=== PATIENT | male | born 1975 | race Caucasian/White ===

== ENCOUNTER 2016-12-23 18:48 | Emergency (ER) | payer OTHER | END 2016-12-23 21:07 | disposition home or self-care (01) | LOC: ER 18:48 | DX: S46.912A Strain of unspecified muscle, fascia and tendon at shoulder and upper arm level, left arm, initial encounter (principal); Z91.040 Latex allergy status; X58.XXXA Exposure to other specified factors, initial encounter | CPT/HCPCS: 73030-LT; 93005; 99284 ==